=== PATIENT | male | born 1940 | race Caucasian/White ===

== ENCOUNTER 2023-05-12 19:40 | Inpatient (IN) | payer MEDICARE ==
[~2023-05-12] VITALS: Ht 188 cm; Wt 87.3 kg
[~2023-05-12 19:40] MED LIST: AML5T PO; ASPI1TAB20 PO; ATO40T PO
[2023-05-12] MEDS ORDERED: IOHEXOL 350 MG/ML 100ML IJ ONE (21:35)
[2023-05-12 21:37] LABS: Basophils # (auto) 0.1 10 ^3/uL (0-0.2); Eosinophils # (auto) 0 10 ^3/uL (0-0.8); Hemoglobin 13.5 g/dL (13.5-17.5); Monocytes # (auto) 1.3 10 ^3/uL (0-1.3)
[2023-05-12 21:39] LABS: Basophils % (auto) 0.6 % (0.0-2.0); Hematocrit 39.7 % (41.0-53.0); Lymphocytes % (auto) 7.4 % (10.0-50.0); Mean Corpuscular Hemoglobin 35.2 pg (28.0-32.0); Mean Corpuscular Volume 103.7 fL (80.0-100.0); Monocytes % (auto) 10.2 % (0.0-12.0); Neutrophils # (auto) 10.6 10 ^3/uL (1.6-8.6); Neutrophils % (auto) 81.8 % (37.0-80.0); Red Blood Cells 3.82 10^6/uL (4.5-5.90); Red Cell Distribution Width 13.6 % (11.8-14.3)
[2023-05-12 21:54] LABS: INR 1.06 (0.9-1.15); Partial Thromboplastin Time 27.6 SEC (24.5-34.5); Prothrombin Time 11.1 sec (9.3-11.8)
[2023-05-12 21:55] LABS: Lactic Acid w/Reflex 2.1 mmol/L (0.4-2.0)
[2023-05-12 21:56] LABS: Alanine Aminotransferase 12 U/L (7-40); Albumin 4.4 g/dL (3.2-4.8); Alkaline Phosphatase 98 U/L (46-116); Anion Gap 8 (5-15); Aspartate Aminotransferase 30 U/L (13-40); BUN/Creatinine Ratio 14.9 (10.0-20.0); Bilirubin, Total 1.3 mg/dL (0.2-1.0); Blood Urea Nitrogen 15 mg/dL (9-23); Calcium 9.6 mg/dL (8.7-10.4); Carbon Dioxide 24 mmol/L (20-30); Chloride 102 mmol/L (98-107); Glucose 104 mg/dL (74-106); Lipase 43 U/L (12-53); Magnesium 1.8 mg/dL (1.6-2.6); Potassium 4.2 mmol/L (3.5-5.1); Sodium 134 mmol/L (136-145); Total Protein 7.5 g/dL (5.7-8.2)
[2023-05-12 22:32] LABS: Erythrocyte Sedimentation Rate 12 mm/hr (0-20)
[2023-05-13] VITALS (10 sets, daily range): BP systolic 112–147; BP diastolic 62–78; PULSE 61–96; RESP 16–20; TEMP 97.6–98.7; O2SAT 94–97
[2023-05-13] MEDS ORDERED: LORazepam 2MG/ML-1ML VIAL IV ONE (01:30)
[2023-05-13] MEDS ORDERED: LIDOCAINE W/ EPINEPHRINE 1% 20ML VIAL ID ONE (02:00)
[2023-05-13 03:47] LABS: COVID19 ANTIGEN SOFIA FIA NEGATIVE (NEGATIVE)
[2023-05-13] MEDS ORDERED: ONDANSETRON HCL 4 MG/2 ML VIAL IV PRN (05:00)
[2023-05-13] MEDS ORDERED: NITROGLYCERIN 0.4 MG SL TAB SL PRN (05:00)
[2023-05-13] MEDS ORDERED: ACETAMINOPHEN 325 MG TAB PO PRN (05:00)
[2023-05-13] MEDS ORDERED: MORPHINE SULFATE INJ 2 MG/ml SYRG IV PRN (05:00)
[2023-05-13] MEDS: ASPirin 81 mg TAB PO SCH (09:56)
[2023-05-13] MEDS: LOSARTAN POTASSIUM 25 MG TAB PO SCH (09:56)
[2023-05-13] MEDS ORDERED: ENOXAPARIN SOD 40 MG/0.4 ML SYRINGE SC SCH (10:00)
[2023-05-13] MEDS ORDERED: amLODIPine BESYLATE 5 MG TAB PO SCH (10:00)
[2023-05-13] MEDS ORDERED: FUROSEMIDE 20 MG TAB PO SCH (10:00)
[2023-05-13 12:27] LABS: Triglycerides 37 mg/dL (< 150)
[2023-05-13 12:28] LABS: LDL Cholesterol 71 mg/dL (< 100)
[2023-05-13 12:29] LABS: Cholesterol 144 mg/dL (< 200); HDL Cholesterol 59 mg/dL (40-59)
[2023-05-13 13:02] LABS: Urine WBC None Seen /hpf (0 - 3)
[2023-05-13 13:24] LABS: Amphetamine Screen, Urine Neg (NEGATIVE); Barbiturate Scree,Urine Neg (NEGATIVE); Benzodiazephine Screen, Urine Neg (NEGATIVE); Cannabinoid Screen, Urine Neg (NEGATIVE); Cocaine Screen, Urine Neg (NEGATIVE); Opiate Scree,Urine Neg (NEGATIVE); Phencyclidine Screen, Urine Neg (NEGATIVE)
[2023-05-13 13:48] LABS: Urine Bacteria NONE SEEN /hpf (None Seen); Urine Blood Negative /uL (Negative); Urine Clarity Clear (Clear); Urine Color Colorless (Yellow); Urine Protein, UAD Negative (Negative); Urine Specific Gravity 1.007 (1.001-1.035); Urine Urobilinogen Normal (Negative)
[2023-05-13] MEDS: TAMSULOSIN HYDROCHLORIDE 0.4 MG CAP PO SCH (17:42)
[2023-05-13] MEDS: ATORVASTATIN 20 MG TAB PO SCH (22:36)
[2023-05-14] VITALS (7 sets, daily range): BP systolic 117–141; BP diastolic 55–82; PULSE 52–65; RESP 19–22; TEMP 97.4–98.2; O2SAT 94–99
[2023-05-14 06:28] LABS: Chloride 104 mmol/L (98-107); Potassium 3.7 mmol/L (3.5-5.1); Sodium 136 mmol/L (136-145)
[2023-05-14 06:29] LABS: Anion Gap 7 (5-15); Calcium 8.7 mg/dL (8.7-10.4); Carbon Dioxide 25 mmol/L (20-30)
[2023-05-14 06:34] LABS: BUN/Creatinine Ratio 12.8 (10.0-20.0); Blood Urea Nitrogen 11 mg/dL (9-23); Glucose 94 mg/dL (74-106)
[2023-05-14 07:06] LABS: Basophils # (auto) 0 10 ^3/uL (0-0.2); Basophils % (auto) 0.8 % (0.0-2.0); Eosinophils # (auto) 0.2 10 ^3/uL (0-0.8); Eosinophils % (auto) 2.4 % (0.0-7.0); Hematocrit 37.2 % (41.0-53.0); Hemoglobin 12.8 g/dL (13.5-17.5); Lymphocytes # (auto) 1.4 10 ^3/uL (0.4-5.4); Lymphocytes % (auto) 22.4 % (10.0-50.0); Mean Corpuscular Hemoglobin 35.9 pg (28.0-32.0); Mean Corpuscular Hgb Conc. 34.6 g/dL (32.0-36.0); Mean Corpuscular Volume 103.7 fL (80.0-100.0); Monocytes % (auto) 15.5 % (0.0-12.0); Neutrophils # (auto) 3.8 10 ^3/uL (1.6-8.6); Neutrophils % (auto) 58.9 % (37.0-80.0); Nucleated Red Blood Cells % 0.3 %; Red Blood Cells 3.58 10^6/uL (4.5-5.90); Red Cell Distribution Width 13.6 % (11.8-14.3); White Blood Cell 6.4 10^3/uL (4.4-10.8)
[2023-05-14] MEDS: ASPirin 81 mg TAB PO SCH (09:30)
[2023-05-14] MEDS: LOSARTAN POTASSIUM 25 MG TAB PO SCH (09:31)
[2023-05-14] MEDS ORDERED: ADENOSINE 76 MG in GIVE UN-DILUTED 0 ML IV ONE (10:30)
[2023-05-14] MEDS: TAMSULOSIN HYDROCHLORIDE 0.4 MG CAP PO SCH (17:23)
[2023-05-14] MEDS: ATORVASTATIN 20 MG TAB PO SCH (22:12)
[2023-05-15] VITALS (18 sets, daily range): BP systolic 95–140; BP diastolic 49–79; PULSE 49–70; RESP 12–20; TEMP 97.4–98.5; O2SAT 94–99
[2023-05-15 04:32] LABS: Basophils # (auto) 0.1 10 ^3/uL (0-0.2); Eosinophils # (auto) 0.2 10 ^3/uL (0-0.8); Hemoglobin 13.2 g/dL (13.5-17.5); Lymphocytes # (auto) 1.6 10 ^3/uL (0.4-5.4); Neutrophils % (auto) 53.7 % (37.0-80.0)
[2023-05-15 04:37] LABS: Basophils % (auto) 1.9 % (0.0-2.0); Eosinophils % (auto) 2.8 % (0.0-7.0); Hematocrit 38.2 % (41.0-53.0); Lymphocytes % (auto) 26.2 % (10.0-50.0); Mean Corpuscular Hemoglobin 35.8 pg (28.0-32.0); Mean Corpuscular Hgb Conc. 34.5 g/dL (32.0-36.0); Mean Corpuscular Volume 103.8 fL (80.0-100.0); Monocytes # (auto) 0.9 10 ^3/uL (0-1.3); Monocytes % (auto) 15.4 % (0.0-12.0); Neutrophils # (auto) 3.2 10 ^3/uL (1.6-8.6); Red Blood Cells 3.68 10^6/uL (4.5-5.90); Red Cell Distribution Width 13.3 % (11.8-14.3); White Blood Cell 5.9 10^3/uL (4.4-10.8)
[2023-05-15 04:45] LABS: Anion Gap 6 (5-15); Carbon Dioxide 25 mmol/L (20-30); Chloride 104 mmol/L (98-107); Potassium 3.8 mmol/L (3.5-5.1); Sodium 135 mmol/L (136-145)
[2023-05-15 04:46] LABS: Calcium 8.7 mg/dL (8.7-10.4)
[2023-05-15 04:51] LABS: BUN/Creatinine Ratio 12.5 (10.0-20.0); Blood Urea Nitrogen 10 mg/dL (9-23); Glucose 96 mg/dL (74-106)
[2023-05-15 05:06] LABS: INR 1.1 (0.9-1.15); Partial Thromboplastin Time 30.2 SEC (24.5-34.5); Prothrombin Time 11.5 sec (9.3-11.8)
[2023-05-15] MEDS ORDERED: HEPARIN SODIUM (PORCINE) 5000 UNITS/ML 1ML VIAL ONE (08:33)
[2023-05-15] MEDS ORDERED: fentaNYL CITRATE 100 MCG/2 ML VL ONE (08:33)
[2023-05-15] MEDS ORDERED: LIDOCAINE 2%HCL (LOCAL ANESTH.) INJ 20ML MDV ONE (08:33)
[2023-05-15] MEDS ORDERED: MIDAZOLAM HCL 2MG/2ML 2ml VIAL (1mg/ml) ONE (08:33)
[2023-05-15] MEDS ORDERED: ANGIOMAX 250 MG VIAL IV ONE (08:33)
[2023-05-15] MEDS ORDERED: VERAPAMIL 2.5MG/ML INJ 2ML VIAL IV ONE (08:33)
[2023-05-15] MEDS ORDERED: IODIXANOL 320MG/ML 100ML BTL IV ONE ×2 (08:34→08:47)
[2023-05-15] MEDS ORDERED: SODIUM CHL 0.9% 0 ML ONE (08:34)
[2023-05-15] MEDS: LOSARTAN POTASSIUM 25 MG TAB PO SCH (10:48)
[2023-05-15] MEDS: ASPirin 81 mg TAB PO SCH (10:49)
[2023-05-15] MEDS: TAMSULOSIN HYDROCHLORIDE 0.4 MG CAP PO SCH (18:05)
[2023-05-15] MEDS: ATORVASTATIN 20 MG TAB PO SCH (21:53)
[2023-05-16] VITALS (8 sets, daily range): BP systolic 109–141; BP diastolic 52–77; PULSE 61–63; RESP 16–20; TEMP 97.4–98.2; O2SAT 96–99
[2023-05-16] MEDS: LOSARTAN POTASSIUM 25 MG TAB PO SCH (10:33)
[2023-05-16] MEDS: ASPirin 81 mg TAB PO SCH (10:33)
[2023-05-16] MEDS: TAMSULOSIN HYDROCHLORIDE 0.4 MG CAP PO SCH (18:29)
[2023-05-16] MEDS: ATORVASTATIN 20 MG TAB PO SCH (20:51)
[2023-05-17 05:00] VITALS: BP 132/78; PULSE 62; RESP 18; TEMP 98.1; O2SAT 96
[2023-05-17 07:46] VITALS: RESP 17; O2SAT 99
[2023-05-17 08:36] VITALS: BP 130/71; PULSE 56; RESP 18; TEMP 98; O2SAT 97
[2023-05-17] MEDS: ASPirin 81 mg TAB PO SCH (10:41)
[2023-05-17] MEDS: LOSARTAN POTASSIUM 25 MG TAB PO SCH (10:41)
[2023-05-17 13:00] VITALS: BP 133/67; PULSE 55; RESP 16; TEMP 97.9; O2SAT 95
== END 2023-05-17 15:27 | DRG 280 ==
LOC: ER 19:40 → EDBD 19:40 → TELE 05-13 04:52 → TELE-CENTR 05-13 08:41 → CENTRAL 05-15 14:25
PROVIDERS: ADMIT Nurse Practitioner; ATTEND Internal Medicine
PROC: 4A023N7 Measurement of Cardiac Sampling and Pressure, Left Heart, Percutaneous Approach (ICD-10-PCS; principal; 2023-05-15)
PROC: B211YZZ Fluoroscopy of Multiple Coronary Arteries using Other Contrast (ICD-10-PCS; 2023-05-15)
PROC: B215YZZ Fluoroscopy of Left Heart using Other Contrast (ICD-10-PCS; 2023-05-15)
PROC: 4A033BC Measurement of Arterial Pressure, Coronary, Percutaneous Approach (ICD-10-PCS; 2023-05-15)
DX: I21.4 Non-ST elevation (NSTEMI) myocardial infarction (principal); I50.31 Acute diastolic (congestive) heart failure; E87.20 Acidosis, unspecified; I11.0 Hypertensive heart disease with heart failure; D72.829 Elevated white blood cell count, unspecified; N40.0 Benign prostatic hyperplasia without lower urinary tract symptoms; S01.01XA Laceration without foreign body of scalp, initial encounter; W01.0XXA Fall on same level from slipping, tripping and stumbling without subsequent striking against object, initial encounter; D64.9 Anemia, unspecified; E78.5 Hyperlipidemia, unspecified; Z20.822 Contact with and (suspected) exposure to COVID-19; I25.10 Atherosclerotic heart disease of native coronary artery without angina pectoris; H53.9 Unspecified visual disturbance; R55 Syncope and collapse; E66.9 Obesity, unspecified; Z68.24 Body mass index [BMI] 24.0-24.9, adult; Y93.89 Activity, other specified; Y92.098 Other place in other non-institutional residence as the place of occurrence of the external cause; Y99.8 Other external cause status
CPT/HCPCS: 36415; 70450; 71045; 72125; 78452; 80048; 80053; 80061; 80307; 80320; 81001; 82553; 83036; 83605; 83690; 83735; 83880; 83930; 84443; 84484; 85025; 85610; 85652; 85730; 86850; 86900; 86901; 87426; 93005; 93017; 93306; 93458; 93571; 93886; 96372; 96374; 97110; 97116; 97163; 97530; 99152; G0378; J0153; J2250; Q9967